=== PATIENT | female | born 1995 | race Caucasian/White ===

== ENCOUNTER 2016-06-27 23:56 | Emergency (ER) | payer OTHER ==
[2016-06-28 00:13] VITALS: BP 124/76
--- NOTE | 2016-06-28 01:03 | ED ---
Laceration/Wound HPI - HPI Summary HPI Summary: 20 female presents accompanied by 2 friends with complaints of a left foot laceration that occurred just prior to arrival while at a school prom and having a sink fall from the wall onto her foot. Foot was cut by a piece of glass. Denies foreign body that shes noticed. Is able to bear weight and walk. Admits to some pain at top of foot wear was hit. Denies bruising and swelling. Tetanus up to date. No other injuries or complaints at this time. - History of Current Complaint Stated Complaint: LT FOOT LAC Time Seen by Provider: 06/28/16 00:03 Hx Obtained From: Patient Mechanism of Injury: Sharp/Blunt Trauma Onset/Duration: Sudden Onset, Lasting Hours Alleviating: Compression Onset Severity: Mild Current Severity: None Pain Intensity: 0 Pain Scale Used: 0-10 Numeric Associated Signs & Symptoms: Redness, Pain - Allergy/Home Medications Allergies/Adverse Reactions: Allergies Allergy/AdvReac Type Severity Reaction Status Date / Time No Known Allergies Allergy Verified 06/28/16 00:08 PMH/Surg Hx/FS Hx/Imm Hx Endocrine/Hematology History: Denies: Hx Anticoagulant Therapy, Hx Diabetes, Hx Unexplained Bleeding Cardiovascular History: Denies: Hx Hypertension Respiratory History: Denies: Hx Asthma - Surgical History Surgery Procedure, Year, and Place: none - Immunization History Date of Tetanus Vaccine: UTD, per patient for [facility] Immunizations Up to Date: Yes Infectious Disease History: No Infectious Disease History: Denies: Traveled Outside the [place] in Last 30 Days - Family History Known Family History: Positive: None - Social History Alcohol Use: Weekly Substance Use Type: Reports: None Smoking Status (MU): Never Smoked Tobacco Review of Systems Constitutional: Negative Cardiovascular: Negative Respiratory: Negative Musculoskeletal: Negative Positive: Other - laceration left foot All Other Systems Reviewed And Are Negative: Yes Physical Exam Triage Information Reviewed: Yes Vital Signs On Initial Exam: Initial Vitals Temp Pulse Resp BP Pulse Ox 98.6 F 84 18 124/76 100 06/28/16 00:06 06/28/16 00:06 06/28/16 00:06 06/28/16 00:06 06/28/16 00:06 Vital Signs Reviewed: Yes Appearance: Positive: Well-Appearing, No Pain Distress - patient is nervous to get stitches, Well-Nourished Skin: Positive: Warm, Skin Color Reflects Adequate Perfusion, Dry, Erythema @, Other - 2cm linear laceration noted on left anterior foot, dorsal side. no active bleeding, no FB. pedal pulse intact. no sign of infection. rest of skin exam normal Head/Face: Positive: Normal Head/Face Inspection Eyes: Positive: Normal ENT: Positive: Normal ENT inspection, Hearing grossly normal Respiratory/Lung Sounds: Positive: Clear to Auscultation, Breath Sounds Present. Negative: Rales, Rhonchi, Wheezes Cardiovascular: Positive: Normal, RRR, Pulses are Symmetrical in both Upper and Lower Extremities - pedal pulses 2+ Musculoskeletal: Positive: Normal, Strength/ROM Intact, Pain @ - tender to touch anterior foot, no crepitus, step off or obvious deformity other than laceration noted. no contusion eccyhmosis or hematoma. Negative: Limited @, Interruption @, Abnormal @, Edema Left, Edema Right Neurological: Positive: Normal, Sensory/Motor Intact - sensation intact all extremities, Alert, Oriented to Person Place, Time, CN Intact II-III, Reflexes Intact, NV Bundle Intact Distally, Normal Gait Psychiatric: Positive: Anxious Procedures - Laceration/Wound Repair 1 Location: lower extremity - left anterior foot Description: Linear Anesthesia: Local, 1.0%, Lido Length, Depth and Shape: 2 cm, linear, .5cm depth Betadine Prep?: Yes Irrigated w/ Saline (ccs): 50 Laceration/Wound Explored: clean, no foreign body removed Closure: Single Layer Suture Type: Nylon, Prolene Number of Sutures: 3 Layer Closure?: No Sterile Dressing Applied?: Yes - telfa and kerlex Diagnostics - Vital Signs Vital Signs Temp Pulse Resp BP Pulse Ox 06/28/16 00:06 98.6 F 84 18 124/76 100 - Laboratory Lab Statement: Any lab studies that have been ordered have been reviewed, and results considered in the medical decision making process. - Radiology left foot Xray Interpretation: No Acute Changes Radiology Interpretation Completed By: ED Physician - Dr Sánchez, normal x-ray without acute fracture/findings Laceration Repair Course/Dx - Course Course Of Treatment: patient was in no pain and did not want any pain medication at this time. laceration was sutured without complication using sterile fashion. remove in 7 days. ice and ibuprofen. aware of worsening signs and symptoms such as infection. no need for antibiotics at this time. tetanus up to date. follow up with health center or pcp. - Differential Dx Differental Diagnoses: Abrasion, Avulsion, Foreign Body, Laceration, Puncture Wound, Tendon Laceration, Other - Clinical Impression Provider Diagnoses: Laceration of left foot Discharge - Discharge Plan Condition: Stable Disposition: HOME Patient Education Materials: Laceration (ED), Care For Your Stitches (ED) Referrals: [facility] [Primary Care Provider] - Additional Instructions: Keep dressing on and do not get wet for 24-48 hours. Keep area clean and dry. Do not scrub area. Watch for signs of infection, if you develop these please seek medical attention. Have stitched removed in 7 days Ice area and take ibuprofen as needed for pain and inflammation. Follow up with pcp.
--- NOTE | 2016-06-28 07:25 | RAD ---
INDICATION: Left foot injury. Laceration. COMPARISON: None TECHNIQUE: AP, lateral, and oblique views were obtained. FINDINGS: The bony structures, joint spaces, and soft tissues are normal for age. IMPRESSION: NO FRACTURE OR FOREIGN BODY.
== END 2016-06-28 02:00 | disposition home or self-care (01) ==
LOC: ED 23:56
DX: S91.312A Laceration without foreign body, left foot, initial encounter (principal); W25.XXXA Contact with sharp glass, initial encounter; Y93.9 Activity, unspecified; Y92.9 Unspecified place or not applicable; Y99.9 Unspecified external cause status
CPT/HCPCS: 99282